=== PATIENT | male | born 1995 | race Caucasian/White ===

== ENCOUNTER 2022-03-18 20:34 | Inpatient (IN) | payer MEDICAID, OTHER, SELFPAY ==
[2022-03-18 20:43] VITALS: BP 132/88; BP 145/74; PULSE 60; PULSE 72; RESP 18; TEMP 36.6; O2SAT 96; O2SAT 98; BMI 33.7
--- NOTE | 2022-03-18 20:45 | ED.PSYCH ---
HPI - Psych General Chief Complaint: Psychiatric Symptoms Stated Complaint: section 12 Source: patient and EMS Mode of arrival: EMS Limitations: altered mental status (Manic, paranoid) History of Present Illness HPI Narrative: 26-year-old male presents via EMS for manic behavior. Patient was found outside, sitting in a hole that he was digging with his hands. He is paranoid and is suicidal. MD complaint: suicidal ideation and feels depressed Onset (ago): unknown Duration: getting worse History of same: Yes Associated psychiatric symptoms: depression, suicidal ideation, auditory hallucinations, visual hallucinations and delusions Associated symptoms: denies other symptoms Treatments prior to arrival: placed on mental health hold If self harm: admits thoughts of self harm Related Data Allergies Allergy/AdvReac Type Severity Reaction Status Date / Time nut - unspecified [NUTS] Allergy Severe AIRWAY Unverified 03/16/20 19:45 CLOSING shellfish derived Allergy Intermediate VOMITING Unverified 03/16/20 19:45 [SHELLFISH DERIVED] Review of Systems Review of Systems: Yes Unobtainable due to mental status PMFSH Past Medical History Attestation statement: The following information was validated with the patient. Source: old records reviewed Social History Social History Advance Directives: No Advance Directives Information Provided: No Physical Exam Vital Signs: Vital Signs: Last Vital Signs Temp 97.8 F 03/18/22 20:43 Pulse 60 03/18/22 20:43 Resp 18 03/18/22 20:43 BP 145/74 H 03/18/22 20:43 Pulse Ox 98 03/18/22 20:43 O2 Del Method 03/18/22 20:43 BMI result Body Mass Index 33.7 Appearance: Alert. Manic. Moderate psychiatric distress. Eyes: Pupils equal, round and reactive to light. ENT: Pharynx normal. Neck: Normal inspection. Neck supple. CVS: Normal heart rate and rhythm. Pulses normal. Respiratory: No respiratory distress. Breath sounds normal. Abdomen: Soft and nontender. Skin: Skin warm and dry. Normal skin color. Normal skin turgor. Extremities: Gait well-balanced well coordinated. Neuro: No motor deficit. No sensory deficit. Cranial nerves 2-12 intact. Course Course Course Narrative: 26-year-old male presents via EMS for psychosis, delusions, and paranoid behavior. He was found sitting in a hole that he dug with his hands, his parents have significant concerns about his mental state of well-being. Patient is not answering questions that are asked, states that he would like something to wash his hands with because he has dirt under his fingernails. He does not describe any physical ailments at this time, as even unlabored respirations, is afebrile with vital signs that are stable. Will order labs, crisis consult and psych consult. 00:10 lab values unremarkable. Urinalysis is still pending. [facility] consult pending. Physician observation started at this time. MDM - Psych Differential Diagnosis Differential diagnosis: Likely acute psychosis, suicidal ideation, bipolar disorder, depression, drug-induced psychotic disorder, acute anxiety, mood disorder and schizoaffective disorder Medical Records Attestation: I reviewed the patient's medical records. Lab Data Attestation: I reviewed the patient's lab results. Result diagrams: 03/18/22 21:03/18/22 21:09 Labs: Lab Results 03/18/22 03/18/22 03/18/22 Range/Units 21:09 21:09 21:09 WBC 8.3 (4.8-10.8) X10*3/uL RBC 4.68 (4.60-5.80) X10*6/uL Hgb 14.2 (14.0-18.0) g/dl Hct 41.8 L (42.0-52.0) % MCV 89.3 (80.0-98.0) fL MCH 30.3 (27.0-33.0) pg MCHC 34.0 (31.0-36.0) g/dl RDW 12.7 (11.0-16.0) % Plt Count 255 (160-400) X10*3/uL MPV 11.4 (9.4-12.4) fL Immature Gran % (Auto) 0.2 (0.0-0.4) % Neut % (Auto) 59.1 (45-73) % Lymph % (Auto) 26.9 (20-40) % Bucks % (Auto) 11.0 (2-11) % Eos % (Auto) 2.7 (0-4) % Baso % (Auto) 0.1 (0-2) % Lymph # (Auto) 2.2 (1.2-4.9) X10*3/uL Bucks # (Auto) 0.9 (0.1-1.2) X10*3/uL Eos # (Auto) 0.2 (0.0-0.4) X10*3/uL Baso # (Auto) 0.0 (0.0-0.2) X10*3/uL Abs Immat Gran (auto) 0.02 (0.00-0.03) X10*3/uL Absolute Neuts (auto) 4.9 (2.0-8.3) x10*3/uL Absolute Nucleated RBC 0.000 (0.0-0.012) X10*3/uL Nucleated RBC % (auto) 0.0 (0.0-0.2) /100WBC Sodium 141 (135-145) mmol/L Potassium 3.8 (3.3-5.1) mmol/L Chloride 106 (96-108) mmol/L Carbon Dioxide 24 (22-29) mmol/L Anion Gap 15 (12-20) BUN 14 (9-16) mg/dL Creatinine 0.87 (0.5-1.4) mg/dL Estim Creat Clear Calc 178.1 Estimated GFR > 60 Random Glucose 98 (60-115) mg/dL Calcium 9.6 (8.4-10.2) mg/dL Total Bilirubin 0.4 (0.0-1.0) mg/dL AST 26 (5-37) U/L ALT 27 (0-40) U/L Alkaline Phosphatase 77 (39-117) U/L Total Protein 7.1 (6.5-8.0) g/dL Albumin 4.2 (3.5-5.0) g/dL Ethyl Alcohol < 10 mg/dL COVID-19 ([facility]) Negative (Negative) COVID-19 Clin Com See Note Discharge Plan Discharge Clinical Impression: Acute psychosis, Suicidal ideation, Depression Patient Disposition: Still a Patient
[2022-03-18 21:15] LABS: MANUAL DIFF FLAG NO
[2022-03-18 21:17] LABS: Basophils Percent Auto 0.1 % (0-2); Eosinophils Absolute Auto 0.2 X10*3/uL (0.0-0.4); Eosinophils Percent Auto 2.7 % (0-4); Hematocrit 41.8 % (42.0-52.0); Hemoglobin 14.2 g/dl (14.0-18.0); Imm Gran Abs Auto 0.02 X10*3/uL (0.00-0.03); Imm Gran Pct Auto 0.2 % (0.0-0.4); Lymphocytes Absolute Auto 2.2 X10*3/uL (1.2-4.9); Lymphocytes Percent Auto 26.9 % (20-40); Mean Corpuscular Hemoglobin 30.3 pg (27.0-33.0); Mean Corpuscular Volume 89.3 fL (80.0-98.0); Mean Platelet Volume 11.4 fL (9.4-12.4); Monocytes Absolute Auto 0.9 X10*3/uL (0.1-1.2); Neutrophils Absolute Auto 4.9 x10*3/uL (2.0-8.3); Neutrophils Percent Auto 59.1 % (45-73); Platelet Count 255 X10*3/uL (160-400); Red Blood Count 4.68 X10*6/uL (4.60-5.80); Red Cell Distribution Width 12.7 % (11.0-16.0); White Blood Count 8.3 X10*3/uL (4.8-10.8)
[2022-03-18 21:31] LABS: Alanine Aminotransferase 27 U/L (0-40); Albumin Level 4.2 g/dL (3.5-5.0); Alkaline Phosphatase 77 U/L (39-117); Anion Gap 15 (12-20); Aspartate Amino Transferase 26 U/L (5-37); Bilirubin Total 0.4 mg/dL (0.0-1.0); Blood Urea Nitrogen 14 mg/dL (9-16); Calcium 9.6 mg/dL (8.4-10.2); Carbon Dioxide 24 mmol/L (22-29); Chloride 106 mmol/L (96-108); Creatinine Clr Calc Pharmacy 178.1; Estimated Glomerular Filt Rate > 60; Ethanol < 10 mg/dL; Glucose Random 98 mg/dL (60-115); Potassium 3.8 mmol/L (3.3-5.1); Sodium 141 mmol/L (135-145); Total Protein 7.1 g/dL (6.5-8.0)
[2022-03-18 21:50] LABS: COVID-19 Test Negative (Negative)
--- NOTE | 2022-03-18 22:30 | MHC.CARE ---
Pt was evaluated by [facility] in the community and sent to the ED as Sect 12 Bedsearch.
--- NOTE | 2022-03-19 | ECG_ITS ---
Test Reason : med clearance Blood Pressure : / mmHG Vent. Rate : 055 BPM Atrial Rate : 055 BPM P-R Int : 154 ms QRS Dur : 090 ms QT Int : 414 ms P-R-T Axes : 028 043 003 degrees QTc Int : 396 ms Sinus bradycardia with sinus arrhythmia Possible Inferior infarct , age undetermined Abnormal ECG No previous ECGs available Referred By: Warren Pérez Electronically Signed By:TU KATZ
[2022-03-19 05:03] VITALS: BP 101/48; PULSE 64; RESP 16; TEMP 36.1; O2SAT 97
--- NOTE | 2022-03-19 05:40 | PC.NURSE ---
Patient slept through the night, no distress observed/reported, patient is quiet, depressed, isolative, hypo-verbal, and follows direction well, behavior non concerning, med rec completed and patient is currently not on any medication, patient was assessed by [facility] in the community disposition is section 12 inpatient bed search, urine sample pending for UTOX, will continue to monitor.
--- NOTE | 2022-03-19 07:37 | PC.NURSE ---
patient appears to remain at rest at present respirations are even and unalbored patient appears in no distress
[2022-03-19 09:13] VITALS: BP 131/83; PULSE 78; RESP 13; TEMP 36.4; O2SAT 96
[2022-03-19 10:23] LABS: Amphetamine Screen Urine Not Detected (Not Detect); Barbiturates, Urine Not Detected (Not Detect); Benzodiazepines Screen Urine Not Detected (Not Detect); Cannabinoid Screen Urine Not Detected (Not Detect); Cocaine Screen Urine Not Detected (Not Detect); Fentanyl, urine Not Detected (Not Detect); Opiate Screen Urine Not Detected (Not Detect); Phencyclidine Screen Urine Not Detected (Not Detect)
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
[2022-03-19 16:06] VITALS: BP 124/72; PULSE 62; RESP 16; TEMP 36.6; O2SAT 98; BMI 33.7
[2022-03-19 18:00] VITALS: BP 126/82; PULSE 68; RESP 16; TEMP 36.6; O2SAT 99
--- NOTE | 2022-03-19 22:21 | PC.ADMIT ---
Pt is a 26 year old admitted on CV for Disorganized and manic behaviors. Pt is alert and oriented X4, VSS, Tox screen is negative, Covid is negative. Pt presents as disheveled and guarded with information. Pt is labile, with flat affect. Eye contact is intense. Pts mood is manic and concentration is poor. Pt was seen drifting from subject a couple of times. Insight, judgment and impulse control are poor. Pt denies drinking, smoking and taking any drugs. Pt states that he would benefit from [facility] for safety.mood stabilization, medication evaluation, diagnosis clarification and therapist support. Pt denies SI/HI/AH/VH at this time. Depression is 6/10, anxiety is 7/10. Admission orders obtained.
--- NOTE | 2022-03-20 08:00 | ECG_ITS ---
Test Reason : antipsychotics Blood Pressure : / mmHG Vent. Rate : 079 BPM Atrial Rate : 079 BPM P-R Int : 158 ms QRS Dur : 094 ms QT Int : 364 ms P-R-T Axes : 047 060 011 degrees QTc Int : 417 ms Normal sinus rhythm Normal ECG When compared with ECG of 19-MAR-2022 14:12, Heart rate has increased Referred By: Booker Chapman Electronically Signed By:TU KATZ
[2022-03-20 09:15] LABS: Alanine Aminotransferase 30 U/L (0-40); Albumin Level 4.7 g/dL (3.5-5.0); Alkaline Phosphatase 81 U/L (39-117); Anion Gap 16 (12-20); Aspartate Amino Transferase 25 U/L (5-37); Bilirubin Total 0.7 mg/dL (0.0-1.0); Blood Urea Nitrogen 9 mg/dL (9-16); Calcium 9.9 mg/dL (8.4-10.2); Carbon Dioxide 27 mmol/L (22-29); Chloride 103 mmol/L (96-108); Cholesterol 175 mg/dL; Creatinine Clr Calc Pharmacy 154.8; Estimated Glomerular Filt Rate > 60; Glucose Fasting 95 mg/dL (60-99); HDL Cholesterol 39 mg/dL; LDL Cholesterol Calculated 111 mg/dl; Potassium 4.5 mmol/L (3.3-5.1); Sodium 141 mmol/L (135-145); Total Protein 7.7 g/dL (6.5-8.0); Triglycerides 128 mg/dL
[2022-03-20 09:38] LABS: Free T4 (Free Thyroxine) 1.17 ng/dL (0.71-1.85)
[2022-03-20 09:56] VITALS: BP 120/72; PULSE 93; RESP 18; TEMP 36.3; O2SAT 97
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
[2022-03-20 22:35] VITALS: BP 113/55; PULSE 76; TEMP 36.2
--- NOTE | 2022-03-21 00:30 | PC.NURSE ---
Pt signed 3 day notice 3 day notice 03/20/22 up 03/25/22
[2022-03-21 12:10] VITALS: BP 126/81; PULSE 89; RESP 18; TEMP 36.3; O2SAT 97; BMI 33.5
[2022-03-21 16:36] VITALS: BP 119/61; PULSE 77; RESP 16; TEMP 36.9; O2SAT 98
[2022-03-21] MEDS: lamoTRIgine 25 MG TABLET PO (19:44)
--- NOTE | 2022-03-21 23:09 | HO.PSYCHPN ---
Subjective Subjective Date of Service: 03/21/22 Reason For Visit: manic agitation paranoia Subjective Notes: Kaur Warning, Conditional Voluntary and 3 Day Healthcare Proxy: No Guardianship: No Medical Problems Affecting Mental Status: No Interim History: I spoke with pt's mom for collateral. She says pt has always had a little bit of depression issues. Says he is always trying to help everybody else and not himself. She reports concerns with pt having mood swings, social issues i.e. difficulty making connections. Says he had a clinical episode of depression at age 17, i.e. not wanting to go to school, neglecting his self care, not getting out of bed- he then went through a chins program through school. However, she reports he has not had an episode of depression that has impaired his functioning since then. In grade school, pt would struggle with turning in his work but always tested well. He struggled with focus. Pt's mom says she has been concerned with pt possibly being on the autism spectrum, however testing did not reveal this. Says he has difficulty with social cues, very immature. She does report pt is impulsive. Says most of his relationships start off online relationships, he has never lived with girlfriend, briefly lived with friends when he lived in [place] a month or two but otherwise he lives at home. Mom confirms he can just stay up for a long long time and will crash, this started in adolescence. She continues to notice depression, says he can be somber and negative, avolition, however he is able to function through it and go to work. Per mom, I would say that he is not psychotic, she denies that pt hallucinates or endorses delusional thought content. There is a FH of bipolar DO, mom's sister is bipolar, pt's sister is diagnosed with adhd and bipolar, mom's twin brother has issues with all his children i.e. asperger?s. Per mom, pt can be rigid in his thinking i.e. If we dont say the right thing to him he will hang up the phone. Says due to his difficulty with relationships, he can only hold a job for 3 months, often leaves his jobs due to interpersonal issues. I spoke to the pt and discussed the incident with him bringing a fifteen y.o. from [place] to his house, says they were talking online for 2 months and this girl wanted to go with him. Pt knew she was [age] however says he was not aware of the legal implications. He had planned the visit over a couple weeks. However, the choice to bring her home was impulsive, says she told him if he didn't help her leave her house then she would jump off a bridge or run away and pt thought he was helping her. He is insightful and says he believes this action, as well as his digging the hole, is because of all the people i was losing. Discloses he lost another friend, someone he used to know from karate, to a MVA recently. Pt has areas of intense interest, i.e. says at one point he learned to chop wood and then did this for three days straight, which is suspicious for ASD. He currently denies SI/SIB/HI. Denies A/VH or delusional thought content. Some personality disorder traits endorsed. Attending Groups: Yes Review of Systems Acute medical concerns: No Medical Review of Systems: unchanged Mental Status Exam Mental Status Exam Narrative: A&O. Okay hygiene, overweight, casual attire. Good eye contact, attentive. No Tics or Tremors. No abnormal involuntary movements. Calm, somewhat guarded and evasive but tolerant of interview. Non-pressured speech, spontaneous with regular rate and rhythm, normal volume and prosody. No prolonged speech latency or dysarthria. Mood is [did not state], affect is constricted. Denies SI/SIB/HI upon inquiry. Denies A/VH or delusional thought content. Thoughts are circumstantial/ non-linear, perseverative. No known cognitive or memory impairment. Insight/ Judgment limited. Diagnostics Vital Signs (24Hr): Vital Signs - 24 hr 03/21/22 12:10 03/21/22 16:36 Temperature 97.4 F 98.4 F Pulse Rate 89 77 Respiratory Rate 18 16 Blood Pressure 126/81 119/61 Pulse Oximetry 97 98 Oxygen Delivery Method Room Air Room Air BMI result Body Mass Index 33.5 Labs Results: 03/18/22 21:09 03/20/22 08:20 Labs: Laboratory Results - last 48 hr 03/20/22 08:20 Sodium 141 Potassium 4.5 Chloride 103 Carbon Dioxide 27 Anion Gap 16 BUN 9 Creatinine 1.00 Estim Creat Clear Calc 154.8 Estimated GFR > 60 Fasting Glucose 95 Calcium 9.9 Total Bilirubin 0.7 AST 25 ALT 30 Alkaline Phosphatase 81 Total Protein 7.7 Albumin 4.7 Triglycerides 128 Cholesterol 175 LDL Cholesterol, Calc 111 HDL Cholesterol 39 TSH 2.00 Free T4 1.17 Medications Medications Current Medications Acetaminophen (Acetaminophen 325 Mg Tablet) 650 mg PO Q6H PRN PRN Reason: Headache/Pain Mild Scale (1-3) Al Hydroxide/Mg Hydroxide (Magnesium Hydrox/Alum Hydrox 30 Ml Oral.Susp) 30 ml PO Q6H PRN PRN Reason: Heartburn/Nausea Hydroxyzine HCl (Hydroxyzine Hcl 25 Mg Tablet) 25 mg PO Q6H PRN PRN Reason: Anxiety Lamotrigine (Lamotrigine 25 Mg Tablet) 25 mg PO BEDTIME SHELIA Last Admin: 03/21/22 19:44 Dose: 25 mg Magnesium Hydroxide (Milk Of Magnesia 30 Ml Oral.Susp) 30 ml PO DAILY PRN PRN Reason: Constipation Quetiapine Fumarate (Quetiapine Fumarate 25 Mg Tablet) 25 mg PO Q4H PRN PRN Reason: anxiety/restlessness Allergies Allergies Allergy/AdvReac Type Severity Reaction Status Date / Time nut - unspecified [NUTS] Allergy Severe AIRWAY Unverified 03/16/20 19:45 CLOSING shellfish derived Allergy Intermediate VOMITING Unverified 03/16/20 19:45 [SHELLFISH DERIVED] Assessment & Plan Assessment & Plan (1) Bipolar II disorder: Status: Acute Code(s): F31.81 - Bipolar II disorder Plan 26 y.o. male who carries a dx of MDD recurrent. He presented to [facility] [place] [place] [facility] on 03/18/2022 after being assessed by CLAUDIA dean in the community for manic behavior. Per Marianela porras, pt?s father called crisis because pt was digging a 4 ft hole in their backyard with his bare hands, he was not responding to his parents and was not redirectable. Per solar crew member, ? reported he was digging the whole to put his problems in it? and the hole was 4 ft long.?Pt has remote hx of OP therapy, no hx of IPLOC or med mangement. He has been diagnosed with MDD, recurrent. Never diagnosed with ADHD but pt suspects this, also says he was tested for autism a few yrs ago but did not get the diagnosis. He denies hallucinations or paranoid thought content. He does have some sx of hypomania including irritability, impulsivity, grandiosity, hyposomnia. He does appear preoccupied by bizarre/ esoteric/ existential thoughts and describes having obsessional/ compulsive behaviors. He complains of inattention, however he also appears bright and attentive during clinical interview. I am giving a provisional diagnosis of Bipolar II disorder, as he has hx of hypomania and depressive episodes. R/o high functioning autism spectrum disorder. Plan: Start lamictal 25 mg QHS for sx of bipolar depression. Reviewed risks and benefits including monitoring for rash/ SJS. 03/21: Pt is in agreement with plan for lamictal, discussed with family, pt also interested in PHP Will obtain collateral info from his bio mom. Q15 min safety checks, CV Monitor response to medications. Monitor for safety in the milieu. Discharge on stabilization. Patient seen. Chart reviewed. Discussed with team. I spent minutes with the patient and/or on the patient floor today, greater than?50% of which was spent counseling/coordinating care. Patient educated on: medication risk/benefits and therapeutic strategies Reason for contiued inpatient stay Substantial Risk for: med/psych decompensation
--- NOTE | 2022-03-22 22:03 | PM.PSYDC ---
DS: Providers Provider Date of Service: 03/22/22 Date of admission: 03/19/22 15:03 Date of discharge: 03/22/22 Primary care physician: Unknown Physician Admitting clinician: Diana Cox Attending physician on admission: Booker Chapman Attending physician on discharge: Booker Chapman Discharging clinician: Diana Cox DS: Diagnosis Discharge Diagnosis (1) Bipolar II disorder: Status: Acute DS: Medications Discharge Medications Home Medications: Previous Rx's Medication Instructions Recorded lamotrigine 25 mg tablet 25 mg PO BEDTIME #14 tabs 03/22/22 Mental Status Exam Mental Status Exam Narrative: A&O. Okay hygiene, overweight, casual attire. Good eye contact, attentive. No Tics or Tremors. No abnormal involuntary movements. Calm, somewhat guarded and evasive but tolerant of interview. Non-pressured speech, spontaneous with regular rate and rhythm, normal volume and prosody. No prolonged speech latency or dysarthria. Mood is good, affect is constricted. Denies SI/SIB/HI upon inquiry. Denies A/VH or delusional thought content. Thoughts are circumstantial/ non-linear, perseverative. No known cognitive or memory impairment. Insight/ Judgment limited. Data Data Completed and Pending Completed studies during hospitalization [Text1]: 03/18/22 03/18/22 03/18/22 21:09 21:09 21:09 WBC 8.3 RBC 4.68 Hgb 14.2 Hct 41.8 L MCV 89.3 MCH 30.3 MCHC 34.0 RDW 12.7 Plt Count 255 MPV 11.4 Immature Gran % (Auto) 0.2 Neut % (Auto) 59.1 Lymph % (Auto) 26.9 Forrest % (Auto) 11.0 Eos % (Auto) 2.7 Baso % (Auto) 0.1 Lymph # (Auto) 2.2 Forrest # (Auto) 0.9 Eos # (Auto) 0.2 Baso # (Auto) 0.0 Abs Immat Gran (auto) 0.02 Absolute Neuts (auto) 4.9 Absolute Nucleated RBC 0.000 Nucleated RBC % (auto) 0.0 Sodium 141 Potassium 3.8 Chloride 106 Carbon Dioxide 24 Anion Gap 15 BUN 14 Creatinine 0.87 Estim Creat Clear Calc 178.1 Estimated GFR > 60 Random Glucose 98 Fasting Glucose Calcium 9.6 Total Bilirubin 0.4 AST 26 ALT 27 Alkaline Phosphatase 77 Total Protein 7.1 Albumin 4.2 Triglycerides Cholesterol LDL Cholesterol, Calc HDL Cholesterol TSH Free T4 Urine Opiates Screen Urine Fentanyl Screen Ur Barbiturates Screen Ur Phencyclidine Scrn Ur Amphetamines Screen U Benzodiazepines Scrn Urine Cocaine Screen U Marijuana (THC) Screen Ethyl Alcohol < 10 COVID-19 ([facility]) Negative COVID-19 Clin Com See Note 03/19/22 03/20/22 10:04 08:20 WBC RBC Hgb Hct MCV MCH MCHC RDW Plt Count MPV Immature Gran % (Auto) Neut % (Auto) Lymph % (Auto) Forrest % (Auto) Eos % (Auto) Baso % (Auto) Lymph # (Auto) Forrest # (Auto) Eos # (Auto) Baso # (Auto) Abs Immat Gran (auto) Absolute Neuts (auto) Absolute Nucleated RBC Nucleated RBC % (auto) Sodium 141 Potassium 4.5 Chloride 103 Carbon Dioxide 27 Anion Gap 16 BUN 9 Creatinine 1.00 Estim Creat Clear Calc 154.8 Estimated GFR > 60 Random Glucose Fasting Glucose 95 Calcium 9.9 Total Bilirubin 0.7 AST 25 ALT 30 Alkaline Phosphatase 81 Total Protein 7.7 Albumin 4.7 Triglycerides 128 Cholesterol 175 LDL Cholesterol, Calc 111 HDL Cholesterol 39 TSH 2.00 Free T4 1.17 Urine Opiates Screen Not Detected Urine Fentanyl Screen Not Detected Ur Barbiturates Screen Not Detected Ur Phencyclidine Scrn Not Detected Ur Amphetamines Screen Not Detected U Benzodiazepines Scrn Not Detected Urine Cocaine Screen Not Detected U Marijuana (THC) Screen Not Detected Ethyl Alcohol COVID-19 ([facility]) COVID-19 Clin Com DS: Summary Hospital Course Hospital Course: 26 y.o. male who carries a dx of MDD recurrent. He presented to [facility] on 03/18/2022 after being assessed by Marianela dean in the community for manic behavior. Per Marianela porras, pt?s father called crisis because pt was digging a 4 ft hole in their backyard with his bare hands, he was not responding to his parents and was not redirectable. Per occupational therapy director, ? reported he was digging the whole to put his problems in it? and the hole was 4 ft long.?Pt has remote hx of OP therapy, no hx of IPLOC or med mangement. He has been diagnosed with MDD, recurrent. Never diagnosed with ADHD but pt suspects this, also says he was tested for autism a few yrs ago but did not get the diagnosis. He denies hallucinations or paranoid thought content. He does have some sx of hypomania including irritability, impulsivity, grandiosity, hyposomnia. He does appear preoccupied by bizarre/ esoteric/ existential thoughts and describes having obsessional/ compulsive behaviors. He complains of inattention, however he also appears bright and attentive during clinical interview. I am giving a provisional diagnosis of Bipolar II disorder, as he has hx of hypomania and depressive episodes. R/o high functioning autism spectrum disorder. Plan: Start lamictal 25 mg QHS for sx of bipolar depression. Reviewed risks and benefits including monitoring for rash/ SJS. 03/21: Pt is in agreement with plan for lamictal, discussed with family, pt also interested in PHP 03/22: Pt tolerating lamictal trial, understands it will need to be titrated up slowly and importance of adherence, advocating to step-down to PHP. Pt is progressing to baseline and denies SI/SIB, says he feels safe, no imminent safety concerns. Time spent discussing smoking cessation with patient: 3 to 10 minutes Status at Discharge Functional status at discharge: independent ambulation Overall status at discharge: patient is progressing back to baseline Time Spent with Patient Time attestation: Total time spent providing and/or coordinating discharge services: Time spent: Less than 30 minutes Discharge Plan Discharge Anticipated Discharge Date/Time: 03/22/22 16:50 Patient Disposition: Home, Self-Care Discharge Diagnosis: Bipolar II DO Rule Out Autism Spectrum Disorder Referrals: Partial-Hospitalization Program (PHP) [Other] (Referral submitted. Partial will follow up to provide intake appointment. Please call if you do not hear back within a few days after discharge.) Physician,Unknown J [Primary Care Provider] - 1 Week Discharge Medications: New lamotrigine 25 mg Tablet 25 mg PO BEDTIME Qty: 14 0RF Discharge Orders: Discharge Order (Routine); Ordered 03/22/22 Ordered By: Diana Cox Diet: Advance to usual diet Activity on Discharge: As tolerated Stand Alone Forms: Patient Portal Discharge page, Community Support Care Plan Goals: Continue psychiatric medications as prescribed and follow up with outpatient referrals and PCP. Health Concerns: Depression Plan of Treatment: Attend follow up appointments with OP psych services and PCP Patient will continue on psychotropic medication regimen for mood stability Take medications as directed A one month supply of medication has been sent to your pharmacy Crisis Team if needed [phone] Call and or return if needed Assessment: Risk assessment at time of discharge:? Patient was interviewed prior to discharge and found to be fully oriented and without any SI or HI. Patient has insight and demonstrates good judgment in terms of wanting to pursue treatment. Patient is not in imminent risk of harm to self or others and has a safety plan that includes presenting to the closest ER or calling 911 if feeling unsafe.? Patient has been observed closely by nursing and unit staff throughout admission; patient has not engaged in any behaviors that suggest dangerousness to self or others and has demonstrated appropriate behaviors and impulse control Discharge Date/Time: 03/22/22 17:51
== END 2022-03-22 17:51 | disposition home or self-care (01) | DRG 753 ==
LOC: HO.ED 03-19 15:00 → HO.PM5 03-19 15:15
PROVIDERS: Nurse Practitioner Family; Admitting Provider Psychiatry & Neurology Psychiatry; Emergency Provider Emergency Medicine; Visit Provider Psychiatry & Neurology Psychiatry
DX: F31.81 Bipolar II disorder (principal); R45.851 Suicidal ideations; Z20.822 Contact with and (suspected) exposure to COVID-19; Z56.0 Unemployment, unspecified; Z91.013 Allergy to seafood; Z79.899 Other long term (current) drug therapy
CPT/HCPCS: 36415; 80053; 80061; 80307; 82077; 84439; 84443; 85025; 87635; 90792; 93005; 99285

== ENCOUNTER 2022-05-01 11:15 | Outpatient (RCR) | payer OTHER, SELFPAY ==
--- NOTE | 2022-04-18 12:48 | PC.ADMIT ---
Patient is a 26 year old single male who holds a diagnosis of Bipolar II disorder. He was referred to [facility] by [facility] inpatient behavioral health unit where patient was admitted d/t mood liability and odd behaviors. Prior to hospitalization patient reportedly was digging a 4 foot hole in his back yard with his bare hands to put his problems in it. Patient struggling with the loss of his best friend who committed suicide over a month ago. See Intergrated Assessment for more information. Patient does not have behavioral health providers and ran out of his prescription Lamictal 2 weeks ago. Patient is at [facility] as step down to treatment. Pt presented with odd presentation at times with some disorganized thinking. When asked if he was having any paranoid thoughts he stated, General getting my stuff together . When asked if he had any Visual hallucinations, seeing things that are not there, patient stated, I've always been a waking dreamer, I see people standing there and talking to them . Patient is alert and oriented x4. Calm and cooperative. Denied SI or thoughts to harm others. Medications reconciled with [facility] medical record and patient. Patient restarting Lamictal today.
[2022-04-18 12:50] VITALS: BP 120/70; PULSE 76; TEMP 36.3
[2022-04-18 12:51] VITALS: BMI 33.6
--- NOTE | 2022-04-18 15:52 | HO.PHPIOP ---
Case opened in treatment team.
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
--- NOTE | 2022-04-19 15:34 | P.PNPSP_ITS ---
Subjective Subjective Date of Service: 04/19/22 Reason For Visit: bipolar d/o Medical Problems Affecting Mental Status: No Interim History: Describes mood as ?tired?. Medication Compliance: No (Has not yet picked up prescription from pharmacy.) Attending Groups: Yes Review of Systems Acute medical concerns: No Medical Review of Systems: unchanged Review of Systems Review of Systems Yes all other systems are reviewed and are negative Constitutional: Reports no additional constitutional complaints Mental Status Exam Mental Status Exam Narrative: NAD. No evidence of psychosis present. Patient does endorse intrusive thoughts at times, describes them as obsessional. No SI/HI. Superficially bright affect. Patient Appearance: Appropriate Patient Orientation: Person, Place, Time and Situation Level of Consciousness: Appropriate and Alert Patient Behavior: Guarded and Good Eye Contact Mood Description: Calm Patient Cognition Impaired: No Ability to Follow Directions: Good Speech Pattern: Clear and Rapid (Rapid but overall appropriate) Memory Description: Intact (Reports that he has forgetfulness. ) Hallucinations: None (denies) Delusions: Not Present (denies) Thought Process: Intact Thought Content: positive for Intact (reports no concerns) Depressive Symptoms: Increased Irritability, Difficulty Sleeping, Loss of Int. in Activity and Isolating-Friends/Family Judgement: Fair Diagnostics Vital Signs (24Hr): BMI result Body Mass Index 33.6 Assessment & Plan Assessment & Plan (1) Bipolar II disorder: Status: Acute Code(s): F31.81 - Bipolar II disorder Assessment and Plan: Discussed symptoms such as intrusive thoughts, obsessional thoughts, impulse control. Patient was dismissive in his answers, did not wish to discuss this, except to state that he does have intrusive thoughts at times, and impulsive thoughts, ?like do you mean I am going to leave here and go build a house or something ?, yeah, maybe?. Patient questioned this advertising copy writer's knowledge, asking w hy I would even consider adding another medication without an adequate trial of the 1st med. Discussed adding olanzapine or risperidone. Patient refused to discuss either medication. Does report poor sleep at times, states that he wakes up multiple times during the night. Discussed how 1 of these meds could help clear his thoughts as well as improve sleep. He stated that he is not interested at this time. When asked about the Lamictal, he stated he did not started it. When asked if he picked it up at the pharmacy, he stated no. Patient was encouraged to brain picker medication and started today, as well as consider adding atypical antipsychotic in order to help manage symptoms quickly. Patient denies any thought of harm to self or others, no safety concern at this time. Plan 1. Continue with current [facility] plan of care. 2. Follow-up as per protocol. Patient educated on: diagnosis, medication risk/benefits and therapeutic strategies Informed Consent: further education needed Reason for contiued partial hosp. stay Substantial Risk for: harm to self, inability to function and rapid decompensation Certification I certify that partial hospital treatment is medically necessary due to the s ymptoms and problems resulting from the patient's mental illness and the failure to treat the patient at the partial hospital level of care would likely result in the patient requiring inpatient psychiatric care which could not be prevented at a less intensive level of care. I spent minutes with the patient and/or on the patient floor today, greater than?50% of which was spent counseling/coordinating care. Discharge Plan Discharge Attending provider: Chalino Aguilar Medications: New lamotrigine 25 mg tablet See Rx Instructions .ROUTE .COMPLEX 28 Days Qty: 42 0RF Rx Instructions: Take 25mg (1 tab) daily X 14 days. THEN, take 50mg (2 tabs) daily X 14 days. Discontinued lamotrigine 25 mg Tablet 25 mg PO BEDTIME Qty: 14 0RF
--- NOTE | 2022-04-23 12:00 | HO.PHPIOP ---
I met with pt to review treatment goals, schedule and aftercare plans. he was a bit irritable talking about mistrust in providers after invalidating and frustrating experiences with med providers and therapists in the recent past. He was agreeable to a referral to [facility]. Discussed a tentative discharge date of 05/01/22.
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
--- NOTE | 2022-04-26 13:58 | HO.PHPIOP ---
I met with the client this afternoon after eliz Zarate NP reported that the client had revealed suicidal ideation. explained that it was more of a thought about having a girlfriend that may care what happens to him. He denies any plan or intent. I gave him the [facility] crisis number and he agreed to call if needed. Eliz put him on alert with crisis.
--- NOTE | 2022-04-26 14:58 | HO.PHPPROGNO ---
Subjective Subjective Date of Service: 04/26/22 Reason For Visit: bipolar d/o Medical Problems Affecting Mental Status: No Interim History: Has been taking Lamictal x5 days. Reports intrusive thoughts, paranoia, auditory hallucinations. Passive SI, states he feels safe. States he believes he will complete a suicide at some point, has been considering building a guilloine when he is ultimately ready to complete it. Agrees to call crisis if feels unsafe/actively suicidal. Medication Compliance: Intermittent Side effects from medications: No Attending Groups: Yes Review of Systems Acute medical concerns: No Medical Review of Systems: unchanged Review of Systems Review of Systems as per HPI Constitutional: Reports no additional constitutional complaints Mental Status Exam Mental Status Exam Narrative: NAD. Normal ambulation/posture. Patient Appearance: Appropriate Patient Orientation: Person, Place, Time and Situation Level of Consciousness: Appropriate and Alert Patient Behavior: Appropriate, Cooperative and Good Eye Contact Mood Description: Appropriate Affect Description: Constricted Patient Cognition Impaired: No Ability to Follow Directions: Good Speech Pattern: Appropriate Memory Description: Normal for Patient Hallucinations: Auditory Delusions: Paranoid Ideation and Ideas of Reference Perceptual Disturbances: Hallucinations Thought Process: Illogical Thought Content: positive for Circumstantial and positive for Suicidal Ideation (passive) Depressive Symptoms: Increased Irritability, Difficulty Sleeping, Loss of Int. in Activity, Isolating-Friends/Family and Thoughts of /Suicide Judgement: Fair Diagnostics Vital Signs (24Hr): BMI result Body Mass Index 33.6 Assessment & Plan Assessment & Plan (1) Bipolar II disorder: Status: Acute Code(s): F31.81 - Bipolar II disorder Assessment and Plan: Has been taking Lamictal x5 days. Reports intrusive thoughts, paranoia, auditory hallucinations. States that he left work early several nights ago because he thought his coworkers were judging him. States that when he was home he could hear them talking about him. Patient questions whether these symptoms could be caused by Lamictal. Medication education provided. Patient not interested in other medications at this time. Passive SI, states he feels safe. Reports that he has a new girlfriend for the past 4 months, and that when he does complete a suicide, he wants to write her a note, as he believes their relationship is going very well. States he believes he will complete a suicide at some point, has been considering building a guilloine when he is ultimately ready to complete it. Agrees to call crisis if feels unsafe/actively suicidal. Phone number to crisis provided. Plan Patient appears to be decompensating, with hallucinations, passive SI, paranoia. Patient has history of impulsive acts. [facility] treatment team has been notified of this automobile and property underwriter's concerns. 1. Call placed to crisis to place patient on alert. 2. Continue with current [facility] plan of care. 3. Continue with lamotrigine as prescribed. 4. Follow-up as per protocol. Patient educated on: diagnosis, medication risk/benefits and therapeutic strategies Informed Consent: further education needed Reason for contiued partial hosp. stay Substantial Risk for: harm to self, inability to function and rapid decompensation Certification I certify that partial hospital treatment is medically necessary due to the symptoms and problems resulting from the patient's mental illness and the failure to treat the patient at the partial hospital level of care would likely result in the patient requiring inpatient psychiatric care which could not be prevented at a less intensive level of care. I spent minutes with the patient and/or on the patient floor today, greater than?50% of which was spent counseling/coordinating care. Discharge Plan Discharge Attending provider: Chalino Aguilar Medications: New lamotrigine 25 mg tablet See Rx Instructions .ROUTE .COMPLEX 28 Days Qty: 42 0RF Rx Instructions: Take 25mg (1 tab) daily X 14 days. THEN, take 50mg (2 tabs) daily X 14 days. Discontinued lamotrigine 25 mg Tablet 25 mg PO BEDTIME Qty: 14 0RF
--- NOTE | 2022-04-30 14:36 | HO.PHPIOP ---
I called and spoke to pt about attendance and about appointment times for intake for therapy and medication management at [facility]. He said he wants to continue in [facility], and will receive appt times from me tomorrow, as he is driving to work. I let him know about importance of attendance, and that if he's out 3 days in a row we will have to discharge him. He sounded clear and coherent and did not display psychotic thought process.
--- NOTE | 2022-05-01 14:20 | P.PNPSP_ITS ---
Subjective Subjective Date of Service: 05/01/22 Reason For Visit: bipolar d/o Medical Problems Affecting Mental Status: No Interim History: Describes mood today as ?okay ?. Denies any SI/HI, reports feeling safe. Today is 2nd day of taking the increased dose of lamotrigine 50 mg daily. Patient had questions regarding diagnosis of bipolar 2 disorder and medications. Feels stable for discharge from [facility] at this time. Medication Compliance: Yes Side effects from medications: No Attending Groups: Yes Review of Systems Acute medical concerns: No Medical Review of Systems: unchanged Review of Systems Review of Systems Yes all other systems are reviewed and are negative Constitutional: Reports no additional constitutional complaints Mental Status Exam Mental Status Exam Narrative: NAD. No restricted or labile affect. Patient Appearance: Appropriate Patient Orientation: Person, Place, Time and Situation Level of Consciousness: Appropriate Patient Behavior: Appropriate, Cooperative and Good Eye Contact Mood Description: Appropriate Affect Description: Appropriate Patient Cognition Impaired: No Ability to Follow Directions: Good Speech Pattern: Appropriate Memory Description: Normal for Patient Thought Process: Intact Thought Content: positive for Intact and positive for Circumstantial (At times) Depressive Symptoms: Increased Irritability and Difficulty Sleeping Judgement: Good Diagnostics Vital Signs (24Hr): BMI result Body Mass Index 33.6 Assessment & Plan Assessment & Plan (1) Bipolar II disorder: Status: Acute Code(s): F31.81 - Bipolar II disorder Assessment and Plan: Describes mood today as ?okay ?. States that he feels more stable. Denies any SI/HI, reports feeling safe. Today is 2nd day of taking the increased dose of lamotrigine 50 mg daily. Sumaya ating medication well, no side effects. Patient had questions regarding diagnosis of bipolar 2 disorder and medications. Discussed symptoms of bipolar to in detail. Patient states that he does have symptoms, including impulsive behaviors, followed by long periods of deep depression. He was concerned about medication, questions about length of time he will need to take meds. This was discussed, recommended that he work closely with his outpatient psychiatry provider going forward. Feels stable for discharge from [facility] at this time. Certification I certify that partial hospital treatment is medically necessary due to the symptoms and problems resulting from the patient's mental illness and the failure to treat the patient at the partial hospital level of care would likely result in the patient requiring inpatient psychiatric care which could not be prevented at a less intensive level of care. I spent minutes with the patient and/or on the patient floor today, greater than?50% of which was spent counseling/coordinating care. Discharge Plan Discharge Attending provider: Chalino Aguilar Medications: New lamotrigine 25 mg tablet See Rx Instructions .ROUTE .COMPLEX 28 Days Qty: 42 0RF Rx Instructions: Take 25mg (1 tab) daily X 14 days. THEN, take 50mg (2 tabs) daily X 14 days. lamotrigine 100 mg tablet See Rx Instructions .ROUTE .COMPLEX Qty: 30 0RF Rx Instructions: AFTER completion of lamotrigine 50mg daily X 14 days, START lamotrigine 100mg daily Discontinued lamotrigine 25 mg Tablet 25 mg PO BEDTIME Qty: 14 0RF Stand Alone Forms: Patient Portal Discharge page Patient Education: Lamotrigine (By mouth), Bipolar Disorder (DC)
== END 2022-05-01 23:59 | disposition home or self-care (01) ==
LOC: HO.PHPA 11:15
PROVIDERS: Visit Provider Psychiatry & Neurology Psychiatry
DX: F31.81 Bipolar II disorder (principal); Z79.899 Other long term (current) drug therapy
CPT/HCPCS: 90792; 90853